=== PATIENT | male | born 1945 | race Caucasian/White ===

== ENCOUNTER → 2017-04-22 | Outpatient (CLI) | payer OTHER ==
[~2017-04-22] MED LIST: APAP500; ASPIR 8181 MG; AVAPRO300 MG PO; B12INJ; CO Q-10200 MG PO; COREG25 MG PO; ELIQUIS2.5 MG PO; ENTRESTO 24 MG1 EACH PO; HUMALOG100 UNIT/2 SQ; IMDUR 30 MG TAB30 M1 PO; LANTUS SUBQ; LASIX 20 MG TAB20 MG PO; LASIX 40 MG TAB40 M2 PO; LEVAQUIN 750 M750 MG PO; NITROGLYCERIN0.4 MG; PRAVACHOL20 MG; PREDNISONE 10 M10 MG PO; PROTONIX40 M1 PO; REPATHA SU140 MG/1 M SUBQ; TRAMADOL 50 MG50 MG; VITAMIN C1000 M1 PO; VITAMIN D3400 UNIT PO; XARELTO20 MG PO
--- NOTE | 2017-04-22 15:28 | 2DMMODE ---
[place] [address] 2 D/M-MODE ECHOCARDIOGRAM Name: JAIR PONCE Room: [facility]#: [id number] Admission: 04/22/17 Attend Phys: Momo Jones MD Discharge: Date of : 47 Date of Service: 04/22/17 1528 Report #: [id number] THIS REPORT FOR: //name// APPROVED REPORT Study performed: 04/22/2017 13:56:16 EXAM: Comprehensive 2D, Doppler, and color-flow Echocardiogram Patient Location: Out-Patient Status: routine BSA: 2.23 HR: 54 bpm BP: 180/80 mmHg Rhythm: NSR Other Information Study Quality: Good Indications CAD 2D Dimensions LVEF(%): 42.89 (>50%) IVSd: 13.26 (7-11mm) LVOT Diam: 22.11 (18-24mm) LVDd: 49.04 mm PWd: 10.49 (7-11mm) Ascending Ao: 36.93 (22-36mm) LVDs: 38.66 (25-40mm) Aortic Root: 38.67 mm Aguilar's LVEF: 42.89 % Volumes Left Atrial Volume (Systole) LA ESV Index: 43.50 mL/m2 Aortic Valve AoV Peak Stephan.: 1.83 m/s AO Peak Gr.: 13.35 mmHg LVOT Max P.22 mmHg AO Mean Gr.: 8.44 mmHg LVOT Mean P.72 mmHg LVOT Max V: 0.90 m/s AO V2 VTI: 49.14 cm LVOT Mean V: 0.61 m/s SELINA (VTI): 1.89 cm2 LVOT V1 VTI: 24.18 cm Mitral Valve E/A Ratio: 1.22 [place] [address] 2 D/M-MODE ECHOCARDIOGRAM Name: JAIR PONCE Room: [facility]#: [id number] Admission: 04/22/17 Attend Phys: Momo Jones MD Discharge: Date of : 47 Date of Service: 04/22/17 1528 Report #: [id number] MV Decel. Time: 223.77 ms MV E Max Stephan.: 1.12 m/s MV PHT: 64.89 ms MVA (PHT): 3.39 cm2 TDI E/Lateral E': 16.00 E/Medial E': 22.40 Medial E' Stephan.: 0.05 m/s Lateral E' Stephan.: 0.07 m/s Pulmonary Valve PV Peak Stephan.: 0.81 m/s PV Peak Gr.: 2.62 mmHg Tricuspid Valve TR Peak Gr.: 28.40 mmHg RVSP: 33.00 mmHg Left Ventricle The left ventricle is normal size. There is akinesis of the basal portion the inferior wall. Mild septal hypertrophy is present. Left ventricular systolic function is mildly decreased. LVEF is 45-50%. Transmitral Doppler flow pattern suggests impaired LV relaxation. Right Ventricle The right ventricle is normal size. The right ventricular systolic function is normal. Atria Left atrium is moderately dilated. The right atrium size is normal. Aortic Valve Moderate aortic valve sclerosis. No aortic regurgitation is present. Mild aortic stenosis. Mitral Valve The mitral valve is normal in structure. Mild mitral regurgitation. No evidence of mitral valve stenosis. Tricuspid Valve The tricuspid valve is normal in structure. Trace tricuspid regurgitation. The RVSP is 30-35 mmHg. Pulmonic Valve The pulmonary valve is normal in structure. Trace [place] [address] 2 D/M-MODE ECHOCARDIOGRAM Name: JAIR PONCE Room: [facility]#: [id number] Admission: 04/22/17 Attend Phys: Momo Jones MD Discharge: Date of : 47 Date of Service: 04/22/17 1528 Report #: [id number] Great Vessels The aortic root is normal in size. IVC is normal in size and collapses with >50% inspiration Pericardium No pericardial effusion. <Conclusion> The left ventricle is normal size. Mild septal hypertrophy is present. Left ventricular systolic function is mildly decreased. LVEF is 45-50%. Transmitral Doppler flow pattern suggests impaired LV relaxation. There is akinesis of the basal portion the inferior wall. Left atrium is moderately dilated. Moderate aortic valve sclerosis. Mild aortic stenosis. Mild mitral regurgitation. Trace tricuspid regurgitation. The RVSP is 30-35 mmHg. <ELECTRONICALLY SIGNED> By: Demetris Rivas MD, FACC 04/22/17 1528 1528 1528 Demetris Rivas MD, FACC /INF
== END ==
LOC: M.CRD 11:00
DX: I25.810 Atherosclerosis of coronary artery bypass graft(s) without angina pectoris (principal); I07.1 Rheumatic tricuspid insufficiency; I35.0 Nonrheumatic aortic (valve) stenosis; I35.8 Other nonrheumatic aortic valve disorders

== ENCOUNTER → 2017-07-02 | Outpatient (CLI) | payer OTHER ==
--- NOTE | 2017-07-25 08:45 | CON ---
[address] [address] CONSULTATION Name: JAIR PONCE Room: [facility].#: [id number] Admission: 07/02/17 Attend Phys: Constanza Ortiz RN Discharge: Date of : 47 Report #: [id number] THIS REPORT FOR: //name// CC: Temo Ortiz DATE OF SERVICE: 07/24/2017 CARDIOLOGY CONSULTATION INDICATION: Complete heart block. HISTORY OF PRESENT ILLNESS: The patient is a very pleasant 72-year-old gentleman who has a history of ischemic cardiomyopathy with prior inferior wall infarct. He presented to the Emergency Room with complaints of intermittent chest discomfort and near syncope. He was found to have a heart rate in the 30s with complete heart block. The patient was brought urgently to the cardiac catheterization lab for temporary pacemaker placement. Post pacemaker placement, the patient's symptoms have improved. PAST MEDICAL HISTORY: 1. Ischemic cardiomyopathy. 2. Coronary artery disease. 3. Quadruple bypass in 2008. 4. Type 2 diabetes mellitus. 5. Stage 3 chronic renal insufficiency. 6. Left rotator cuff repair in 2014. 7. Tonsillectomy and adenoidectomy in . 8. Sleep apnea, on CPAP at bedtime. 9. Hypertension. 10. Skin cancer removed from the scalp. 11. Carotid surgery. HOME MEDICATIONS: Avapro 300 mg daily, CoQ10 at 200 mg at bedtime, Lantus 28 units subQ b.i.d., furosemide 20 mg every other day, aspirin 81 mg daily, pravastatin 20 mg daily, Nitrostat 0.4 mg sublingual p.r.n., vitamin B12 at 1000 mcg daily, Tylenol 500 mg p.r.n., tramadol 50 mg as directed, carvedilol 25 mg p.o. b.i.d., Xarelto 20 mg at bedtime, vitamin C 1000 mg daily, Humalog sliding scale. REVIEW OF SYSTEMS: LEVAQUIN. SOCIAL HISTORY: The patient does not smoke. [place] [address] CONSULTATION Name: JAIR PONCE Room: [facility]#: [id number] Admission: 07/02/17 Attend Phys: Constanza Ortiz RN Discharge: Date of : 47 Report #: [id number] FAMILY HISTORY: Noncontributory. PHYSICAL EXAMINATION: VITAL SIGNS: Blood pressure 113/79, pulse 37. GENERAL: This is a moderately obese white male who does not appear to be in acute distress. HEENT: Normocephalic, atraumatic. Extraocular muscles intact. Mucous membranes moist. NECK: Shows no jugular venous distension. There are no carotid bruits. CHEST: Reveals clear lung das without wheezes or rales. CARDIOVASCULAR: Reveals a regular rhythm that is slow without obvious gallop or murmur. ABDOMEN: Reveals normal bowel sounds. The abdomen is soft and nontender. EXTREMITIES: Shows no edema. Peripheral pulses weak, but palpable. SKIN: Warm and dry. A 12-lead EKG shows complete heart block with heart rate in the 30s. LABORATORY DATA: Reviewed. Sodium 139, potassium 5.1, chloride 104, bicarbonate 26, BUN 52, creatinine 2.4, serum glucose 239. LFTs within normal limits. Initial troponin 3.26. NT-proBNP 4467. White blood cell count 9.2, hemoglobin 11.3, platelet count 141,000. IMPRESSION AND RECOMMENDATIONS: 1. Complete heart block, status post temporary pacemaker placement. The patient will likely require permanent pacemaker the next day or so. We will observe in the ICU overnight. 2. Elevated troponin, possibly due to heart failure, heart block or non-ST elevation myocardial infarction. The patient is anticoagulated on Xarelto. We will continue that and daily aspirin. We will continue serial troponins and obtain echocardiogram. 3. Coronary artery disease, as outlined above. 4. Ischemic cardiomyopathy. Continue beta brett and irbesartan at current doses. We will follow I's and O's. 5. Acute renal failure on chronic renal insufficiency. We will follow labs in a.m. Consider renal consult if kidney function continues to worsen. 6. 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 Continue the patient's home medications and monitor I's and O's. <ELECTRONICALLY SIGNED> By: Demetris Rivas MD, FACC 07/25/17 0845 0133 [id number]rodrigo [facility] MD, FACC /nt
== END ==
LOC: M.ULTRA 09:35
DX: I77.9 Disorder of arteries and arterioles, unspecified (principal); Z88.1 Allergy status to other antibiotic agents; Z88.8 Allergy status to other drugs, medicaments and biological substances

== ENCOUNTER 2017-07-25 00:19 | Inpatient (IN) | payer OTHER ==
[~2017-07-25] VITALS: Ht 170.2 cm; Wt 108.8 kg
--- NOTE | ~2017-07-25 | H ---
[address] [address] HISTORY AND PHYSICAL Name: JAIR PONCE Room: [address] IN M.R.#: [id number] Admission: 07/25/17 Attend Phys: Teofilo Flanagan MD, Discharge: 07/25/17 Date of : 47 Report #: [id number] THIS REPORT FOR: //name// Patient was here less than 24 hour please refer to the final summation note. By: 09Medical Records Staff ALAN /ELYSSA
[~2017-07-25 00:19] MED LIST changes: -ELIQUIS2.5 MG PO; -ENTRESTO 24 MG1 EACH PO; -IMDUR 30 MG TAB30 M1 PO; -REPATHA SU140 MG/1 M SUBQ; -VITAMIN D3400 UNIT PO
[2017-07-25 00:21] VITALS: BP 113/79; BP 94/17
[2017-07-25 00:55] VITALS: BP 95/39
[2017-07-25 01:02] LABS: ABSOLUTE BASOPHILS 0.1 thou/uL (0.0-0.2); ABSOLUTE EOSINOPHILS 0.2 thou/uL (0.0-0.7); ABSOLUTE LYMPHOCYTES 2.2 thou/uL (0.8-5.3); ABSOLUTE NEUTROPHILS 5.6 thou/uL (1.6-8.1); BASOPHILS 0.7 %; EOSINOPHILS 2.4 %; HEMATOCRIT 34.2 % (42.0-52.0); HEMOGLOBIN 11.3 gm/dL (14.0-18.0); LYMPHOCYTES 23.9 %; MCH 29.4 pg (26.0-34.0); MCV 89.1 fL (80.0-100.0); MONOCYTES 11.3 %; MPV 8.8 fl. (7.2-11.1); NUCLEATED RBCS 0 /100WBC; PLATELET COUNT* 141 thou/uL (150-400); POLYS 61.7 %; RBC 3.84 mil/uL (4.50-6.00); RDW-CV 13.3 % (10.5-14.5); WBC 9.2 thou/uL (4.0-11.0)
[2017-07-25 01:06] LABS: CALCIUM 8.3 mg/dL (8.5-10.1); CREATININE 2.4 mg/dL (0.6-1.3); POTASSIUM 5.1 mmol/L (3.5-5.1)
[2017-07-25 01:15] LABS: INR 1.1; PROTIME 10.8 Seconds (9.20-11.50)
[2017-07-25 01:16] LABS: ALBUMIN 3.1 g/dL (3.4-5.0); TOTAL BILIRUBIN 0.4 mg/dL (<0.1-1.0); TOTAL PROTEIN 6.9 g/dL (6.4-8.2)
[2017-07-25 01:18] LABS: TROPONIN-I LEVEL 3.26 ng/mL (<0.06)
[2017-07-25 03:18] LABS: CALCIUM 8.6 mg/dL (8.5-10.1); CREATININE 2.4 mg/dL (0.6-1.3); POTASSIUM 5.1 mmol/L (3.5-5.1)
[2017-07-25] MEDS ORDERED: ENTRESTO 24 MG1 EACH PO (05:11)
[2017-07-25] MEDS ORDERED: IMDUR 30 MG TAB30 M1 PO (05:12)
[2017-07-25] MEDS ORDERED: ELIQUIS2.5 MG PO (05:12)
[2017-07-25] MEDS ORDERED: REPATHA SU140 MG/1 M SUBQ (05:13)
[2017-07-25] MEDS ORDERED: VITAMIN D3400 UNIT PO (05:14)
[2017-07-25 06:00] VITALS: BP 93/45
--- NOTE | 2017-07-25 07:42 | NUR ---
Patient arrived on PACU at 0130. Bedside report provided by surgery RN's. Cath insertion site visualized as c/d/i. PAtient spouse at bedside. ict quality assurance engineer completed as documented. Patient very restless from the time he arrived. Stated "I just want to sit up or stand for a minute, then I will feel better". Sneed catheter placed as patient stated that he had to urinate. Catheter patent with good return. Patient continued to be restless. Soft restraint placed on lower right extremity to keep right leg straight for medical safety. Vital signs in chart q30 minutes.Code blue called at 0600. See code blue sheets. Patient declared at 0638. See Summary worsheet.
--- NOTE | 2017-07-25 13:34 | NUR ---
Pt out with Jonathan from [facility].
--- NOTE | 2017-07-25 16:03 | EKG ---
[place] [address] ELECTROCARDIOGRAM REPORT Name: JAIR PONCE Room: [address] IN .R.#: [id number] Admission: 07/25/17 Attend Phys: Teofilo Flanagan MD, Discharge: 07/25/17 Date of : 47 Report #: [id number] THIS REPORT FOR: //name// [facility] ED Test Date: 2017-07-25 Test Time: 00:23:15 Pat Name: JAIR PONCE Department: Room: Gender: Vice President [employer]: : 1945 Requested By: Judy Marcano Order Number: [id number] MD: Demetris Rivas Measurements Intervals [place] Rate: 38 P: 0 NE: QRS: -11 QRSD: 159 T: 159 QT: 567 QTc: 451 Interpretive Statements Complete AV block with wide QRS complex Compared to ECG 10/01/2016 11:33:29 AV block, complete (third-degree) now present First degree AV block no longer present Electronically Signed On 07-25-2017 16:02:51 CDT by Demetris Rivas [email or web address] <ELECTRONICALLY SIGNED> By: Demetris Rivas MD, FAC 07/25/17 1602 0023 0023 Demetris Rivas MD, [facility] /EPI
--- NOTE | 2017-07-27 09:24 | CARD ---
[address] [address] CARDIAC CATH REPORT Name: JAIR PONCE Room: [address] IN M.R.#: [id number] Admission: 07/25/17 Attend Phys: Teofilo Flanagan MD, Discharge: 07/25/17 Date of : 47 Report #: [id number] THIS REPORT FOR: //name// APPROVED REPORT Study performed: 07/25/2017 00:43:35 Patient Status: ED Room #: Event Personnel: Demetris Rivas Rn Occupational, Snehal Funk RN Monitor, Ronel Ward RN RN, Eron Smart (R) Scrub Exam: Insertion of Temporary Pacemaker Indications: Complete Heart Block The patient is a 72 year-old male with a history of . Procedure The patient underwent informed consent. We discussed the details of the procedure including the risks, which include, but not limited to bleeding, infection, vascular damage, cardiac perforation, and pneumothorax. He understood these risks and was willing to proceed. As such, he was brought to the EP/Cardiac Catheterization laboratory in a fasting and sedated state and prepped and draped in a After informed consent was obtained the cardiac catheterization lab. The area of the right groin was prepped and draped in sterile fashion. Local anesthesia was achieved with 1% lidocaine. Next a 6 Jamaican venous sheath was placed using the percutaneous technique. A balloon tipped temporary pacing wire was then advanced to a secure position within the RV apex. Thresholds were checked and deemed satisfactory. Temperature pacing lead was externally fixed and secured the sheath. The patient tolerated procedure well and without consultation. Conclusion 1. Complete heart block 2. Successful placement of a temporary pacemaker via the right femoral vein <ELECTRONICALLY SIGNED> By: Demetris Rivas MD, FACC 07/27/17 0923 2 0923Microdrigo Rivas MD, FACC /INF
--- NOTE | 2017-08-12 15:16 | D ---
[address] [address] DISCHARGE SUMMARY Name: KRISJAIR AVILA Room: [address] IN M.R.#: [id number] Admission: 07/25/17 Attend Phys: Teofilo Flanagan MD, Discharge: 07/25/17 Date of : 47 Report #: [id number] THIS REPORT FOR: //name// CC: [facility] physician[facility] DATE OF SERVICE: 07/25/2017 CAUSE OF : Cardiac arrest. PROCEDURES DURING THE HOSPITALIZATION: Emergent placement of a temporary pacemaker for complete heart block. HOSPITAL COURSE: The patient was seen in the Emergency Room with complaints of chest pain which had been intermittent throughout the day. Initial EKG showed complete heart block. The patient was taken urgently to the cardiac catheterization lab for temporary pacemaker placement. The patient had a temporary pacemaker placed uneventfully. At that time, the patient's symptoms had resolved. The patient was admitted to the Intensive Care Unit for further evaluation. During this hospitalization, the patient's peak troponin was 3.26 and subsequently 2.80, consistent with non-ST elevation myocardial infarction. After placement of the temporary pacemaker, the patient was situated in his hospital room. He apparently became somewhat restless and was given medication. A Sneed catheter was placed as he stated he needed to urinate. Soft restraints were placed to keep the patient from pulling on his various lines. At one point, the patient was found to be unresponsive and without respirations or pulse and arthur brennan was called at approximately 0600 on 07/25/2017. Resuscitative efforts were unsuccessful. The patient was pronounced at 0638 on 07/25/2017. <ELECTRONICALLY SIGNED> By: Demetris Rivas MD, FACC 08/12/17 1516 1545 1602Microdrigo Rivas MD, FACC /nt
== END 2017-07-25 06:38 | DRG 314 ==
LOC: M.ERS 00:19 → M.CL 00:19 → M.TBA-CV 01:55
PROVIDERS: Emergency Medicine; Internal Medicine Cardiovascular Disease; ADMIT Internal Medicine
PROC: 5A1223Z Performance of Cardiac Pacing, Continuous (ICD-10-PCS; principal; 2017-07-25)
DX: I95.9 Hypotension, unspecified (principal); I50.43 Acute on chronic combined systolic (congestive) and diastolic (congestive) heart failure; I44.2 Atrioventricular block, complete; N18.4 Chronic kidney disease, stage 4 (severe); J96.10 Chronic respiratory failure, unspecified whether with hypoxia or hypercapnia; I12.9 Hypertensive chronic kidney disease with stage 1 through stage 4 chronic kidney disease, or unspecified chronic kidney disease; E11.22 Type 2 diabetes mellitus with diabetic chronic kidney disease; G47.33 Obstructive sleep apnea (adult) (pediatric); Z79.82 Long term (current) use of aspirin; Z88.1 Allergy status to other antibiotic agents; Z79.4 Long term (current) use of insulin; Z79.899 Other long term (current) drug therapy